=== PATIENT | male | born 1950 | race American Indian/Alaskan Native ===

== ENCOUNTER 2019-05-06 09:28 | Day surgery (SDC) | payer MEDICARE ==
[2019-05-06] MEDS ORDERED: ceFAZolin/STERILE WATER 2 GM/20 ML SYRINGE IV NR (11:00)
[2019-05-06] MEDS ORDERED: LACTATED RINGERS 1,000 ML ONE (11:01)
[2019-05-06] MEDS ORDERED: PROPOFOL 200 MG/20 ML VIAL IV ONE (11:23)
[2019-05-06] MEDS ORDERED: LIDOCAINE MPF (2%) 20 MG/1 ML VIAL 5 ML ONE (11:24)
--- NOTE | 2019-05-06 11:55 | Anesthesia Day of Surgery ---
Anesthesia Day of Surgery - Day of Surgery Patient Examined: Yes Patient H&P Reviewed: Yes Patient is NPO: Yes
--- NOTE | 2019-05-06 11:55 | Anesthesia Consultation ---
Anesthesia Consult and Med Hx Date of service: 05/06/19 - Airway ROM Head & Neck: Adequate Mental/Hyoid Distance: Adequate Mallampati Class: Class II Intubation Access Assessment: Probably Good - Pulmonary Exam CTA: Yes - Cardiac Exam Cardiac Exam: RRR - Pre-Operative Health Status ASA Pre-Surgery Classification: ASA3 - Pulmonary Hx Smoking: Yes (1/2 PPD X 40 YRS) Hx Sleep Apnea: No (MYLA PRE SCREEN HIGH RISK.) - Cardiovascular System Hx Hypertension: Yes (X 3 YRS) Hx Peripheral Vascular Disease: Yes (LEGS) - Central Nervous System CVA: Yes (4 YRS AGO , MILD LEFT SIDED WEAKNESS,NO BLOOD THINNERS) - Other Systems Hx Cancer: No
[2019-05-06] MEDS ORDERED: LACTATED RINGERS 1,000 ML IV SCH (12:00)
[2019-05-06] MEDS ORDERED: fentaNYL 100 MCG/2 ML INJ ONE (12:03)
[2019-05-06] MEDS ORDERED: ONDANSETRON 4 MG/2 ML INJ ONE (12:04)
[2019-05-06] MEDS ORDERED: dexAMETHasone 20 MG/5 ML VIAL ONE (12:04)
--- NOTE | 2019-05-06 12:30 | Post Operative Note ---
Date of procedure: 05/06/19 Pre-op diagnosis: molina Post-op diagnosis: same Findings: bilobar Procedure: rezum Anesthesia: GETA Surgeon: BEBO CAMERON Estimated blood loss: none Pathology: none Condition: stable Disposition: PACU
--- NOTE | 2019-05-06 12:31 | Discharge Summary ---
Short Stay Discharge Plan Activity: other (no straining ) Weight Bearing Status: Full Weight Bearing Diet: low fat, low cholesterol, low salt Special Instructions: other (inc fluids ) Durable Medical Equipment Needed Upon Discharge: other (home with james ) Follow up with: JUAN BOYER MD [Primary Care Provider] - 7 Days BEBO CAMERON MD [Staff Physician] - 7 Days
[2019-05-06] MEDS ORDERED: HYDROmorphone 1 MG/1 ML INJ IV PRN (12:57)
[2019-05-06] MEDS ORDERED: ONDANSETRON 4 MG/2 ML INJ IV PRN (12:57)
--- NOTE | 2019-05-06 13:05 | Operative Report ---
PREOPERATIVE DIAGNOSIS: Bladder outlet obstruction. POSTOPERATIVE DIAGNOSES: Bladder outlet obstruction. PROCEDURE: Cystoscopy, Rezum therapy. SURGEON: Dr. Estrada. ANESTHESIA: General. FINDINGS: This is a gentleman with a high IPSS score, bladder outlet obstruction. He now presents for Rezum therapy. He has a short prostate now presents for treatment. DESCRIPTION OF PROCEDURE: The patient was brought to the operating room and placed on the operating table. Following induction of anesthesia, placed in lithotomy position, prepped and draped in usual sterile fashion. Cystourethroscopy showed a short urethra with a minimal median bar. At this point, the scope was removed. The Rezum therapy was primed and then replaced in the bladder without difficulty. We clearly saw the verumontanum and the bladder neck and 1 cm from the bladder neck, treatment was created once on the left and then on the right. The patient tolerated the procedure well. There was a small median bar coming from his right side. We did want treatment in the middle, a total of 3. Patient tolerated the procedure well. No significant complications. Fitzpatrick was easily inserted, brought to recovery in stable condition. JOB# [id number] PANCHO/WARREN
[2019-05-06 13:36] VITALS: BP 130/85
--- NOTE | 2019-05-06 14:08 | Post Anesthesia Evaluation ---
- Post Anesthesia Evaluation Patient Participated: Yes Airway Patent: Yes Stable Respiratory Function: Yes Nausea/Vomiting: No Temp > 96.8F: Yes Pain Manageable: Yes Adequeate Hydration: Yes Anesthesia Complications: No Block Receding Appropriately: Not Applicable Patient on Ventilator: No
== END 2019-05-06 14:25 | disposition home or self-care (01) ==
LOC: OR 09:28
PROVIDERS: ATTEND Urology
DX: N32.0 Bladder-neck obstruction (principal); N40.1 Benign prostatic hyperplasia with lower urinary tract symptoms; I73.9 Peripheral vascular disease, unspecified; E78.00 Pure hypercholesterolemia, unspecified; I10 Essential (primary) hypertension; F17.210 Nicotine dependence, cigarettes, uncomplicated; Z87.440 Personal history of urinary (tract) infections; Z79.899 Other long term (current) drug therapy; Z79.82 Long term (current) use of aspirin; Z98.890 Other specified postprocedural states; Z86.73 Personal history of transient ischemic attack (TIA), and cerebral infarction without residual deficits
CPT/HCPCS: 53854; J0690; J1100; J1170; J2405; J2704; J3010; J7120

== ENCOUNTER 2019-06-16 13:37 | Emergency (ER) | payer MEDICARE ==
--- NOTE | 2019-06-16 14:21 | Event Note ---
ED Screening Note Date of service: 06/16/19 Time: 14:17 ED Screening Note: This is a 68 y.o. M. that presents with retention since awaking this morning. Had a procedure done [address] Estrada at [facility] for BPH. PMH of HTN, MYLA, BPH, HLD, and PVD. Started on new medication 2 days ago. Reports last void was last night with low output. Reports pelvic pressure, frequency, and retention. This initial assessment/diagnostic orders/clinical plan/treatment(s) is/are subject to change based on patients health status, clinical progression and re- assessment by fellow clinical providers in the ED. Further treatment and workup at subsequent clinical providers discretion. Patient/guardian urged not to elope from the ED as their condition may be serious if not clinically assessed and managed. Initial orders include: UA
--- NOTE | 2019-06-16 14:57 | Emergency Department Report ---
HPI - General Chief Complaint: Urogenital-Male Time Seen by Provider: 06/16/19 14:17 - HPI HPI: Room 34 The patient is a 68-year-old male present with chief complaint of urinary retention. Patient states he has slight dysuria yesterday. The patient states throughout the night he had the urge to urinate but whenever he went only a small amount will come out. Patient states this morning he awakened at 07: 3 0 with urge to urinate but cannot pass his urine. Patient has a history of enlarged prostate ED Past Medical Hx - Past Medical History Previous Medical History?: Yes Hx Hypertension: Yes (X 3 YRS) - Surgical History Past Surgical History?: No - Family History Family history: no significant - Social History Smoking Status: Current Every Day Smoker (1/2 pack/day) Substance Use Type: Alcohol (Extremely rarely) - Medications Home Medications: Home Medications Medication Instructions Recorded Confirmed Last Taken Type Aspirin [Adult Aspirin] 81 mg PO DAILY 04/25/19 05/06/19 04/29/19 09:00 History Atorvastatin [Lipitor Tab] 80 mg PO QHS 04/25/19 05/06/19 05/05/19 20:00 History Dextromethorphan HBr/Quinidine 1 each PO BID 04/25/19 05/06/19 05/06/19 08:00 History [Nuedexta 20-10 mg Capsule] Oxybutynin [Ditropan] 5 mg PO QHS 04/25/19 05/06/19 05/05/19 20:00 History carvediloL [Coreg] 3.125 mg PO BID 04/25/19 05/06/19 05/06/19 08:00 History lisinopriL [Zestril] 20 mg PO QDAY 04/25/19 05/06/19 05/06/19 08:00 History Ciprofloxacin HCl [Ciprofloxacin 250 mg PO BID #10 tablet 06/16/19 Unknown Rx TAB] ED Review of Systems ROS: Stated complaint: CANT URINATE Other details as noted in HPI Constitutional: no symptoms reported Eyes: denies: eye pain ENT: denies: throat pain Respiratory: no symptoms reported Cardiovascular: denies: chest pain Endocrine: no symptoms reported Gastrointestinal: abdominal pain Genitourinary: other (Urinary retention) Physical Exam - Physical Exam Vital Signs: Vital Signs 06/16/19 14:20 Temperature 98.2 F Pulse Rate 75 Respiratory 18 Rate Blood Pressure 152/96 O2 Sat by Pulse 100 Oximetry Physical Exam: GENERAL: The patient is well-developed well-nourished male sitting on stretcher not appearing to be in acute distress. [] HEENT: Normocephalic. Atraumatic. Extraocular motions are intact. Patient has moist mucous membranes. NECK: Supple. Trachea midline CHEST/LUNGS: Clear to auscultation. There is no respiratory distress noted. HEART/CARDIOVASCULAR: Regular. There is no tachycardia. There is no gallop rub or murmur. ABDOMEN: Abdomen is soft, nontender. Patient has normal bowel sounds. There is no abdominal distention. SKIN: There is no rash. There is no edema. There is no diaphoresis. NEURO: The patient is awake, alert, and oriented. The patient is cooperative. The patient has normal speech MUSCULOSKELETAL: There is no evidence of acute injury. ED Course Vital Signs 06/16/19 14:20 Temperature 98.2 F Pulse Rate 75 Respiratory 18 Rate Blood Pressure 152/96 O2 Sat by Pulse 100 Oximetry - Reevaluation(s) Reevaluation #1: 06/16/19 16:32 Patient improved sitting on stretcher eating a snack not appearing to be in acute distress ED Medical Decision Making - Lab Data Laboratory Tests 06/16/19 15:55 Urine Color Yellow Urine Turbidity Slightly-cloudy Urine pH 6.0 Ur Specific [place] 1.018 Urine Protein 30 mg/dl Urine Glucose (UA) Neg Urine Ketones Neg Urine Blood Lg Urine Nitrite Neg Urine Bilirubin Neg Urine Urobilinogen < 2.0 Ur Leukocyte Esterase Sm Urine WBC (Auto) 87.0 H Urine RBC (Auto) > 182.0 Urine Mucus Few Urine Yeast (Budding) 1+ - Differential Diagnosis Urinary retention Critical care attestation.: If time is entered above; I have spent that time in minutes in the direct care of this critically ill patient, excluding procedure time. ED Disposition Clinical Impression: Urinary retention, UTI (urinary tract infection) Disposition: - TO HOME OR SELFCARE Is pt being admited?: No Does the pt Need Aspirin: No Condition: Stable Instructions: Urinary Retention in Men (ED), Urinary Tract Infection in Men (ED), Fitzpatrick Catheter Placement and Care (ED) Additional Instructions: Return to the emergency department should you develop worsening symptoms, inability to tolerate food or liquids, high fever or any other concerns Prescriptions: Ciprofloxacin HCl [Ciprofloxacin TAB] 250 mg PO BID #10 tablet Referrals: BEBO CAMERON MD [Staff Physician] - 2-3 Days Time of Disposition: 16:32
[2019-06-16 16:13] LABS: Bilirubin,Urine NEG (Negative); Blood,Urine LG (Negative); Color,Urine Yellow (Yellow); Mucus,Urine FEW /HPF; Urobilinogen,Urine < 2.0 mg/dL (<2.0)
[2019-06-16 16:14] LABS: RBC,Urine > 182.0 /HPF (0.0-6.0)
[2019-06-16 19:13] VITALS: BP 147/89
== END 2019-06-16 16:59 | disposition home or self-care (01) ==
LOC: ED 13:37
DX: N39.0 Urinary tract infection, site not specified (principal); R33.9 Retention of urine, unspecified; I10 Essential (primary) hypertension; F17.200 Nicotine dependence, unspecified, uncomplicated; Z79.899 Other long term (current) drug therapy
CPT/HCPCS: 51702; 81001; 87086; 99283

== ENCOUNTER 2019-12-05 05:55 | Day surgery (SDC) | payer MEDICARE ==
[2019-12-03 09:43] LABS: Hematocrit 40.7 % (35.5-45.6); Hemoglobin 13.6 gm/dl (11.8-15.2); Mean Corpuscular HGB Conc 34 % (32-34); Mean Corpuscular Volume 98 fl (84-94); Platelet Count 149 K/mm3 (140-440); Red Blood Count 4.14 M/mm3 (3.65-5.03); Red Cell Distribution Width 13.9 % (13.2-15.2)
[2019-12-05] MEDS ORDERED: LACTATED RINGERS 1,000 ML IV SCH (06:00)
[2019-12-05] MEDS ORDERED: MAGNESIUM OXIDE 400 MG TAB PO SCH (06:00)
[2019-12-05] MEDS ORDERED: CELECOXIB 200 MG CAP PO NR (06:00)
[2019-12-05] MEDS ORDERED: GABAPENTIN 300 MG CAP PO NR (06:00)
[2019-12-05] MEDS ORDERED: ceFAZolin/Water 2 GM/20 ML 2 GM/20 ML SYRINGE IV SCH (06:00)
[2019-12-05] MEDS ORDERED: MIDAZOLAM 2 MG/2 ML INJ IV NR (06:00)
[2019-12-05] MEDS ORDERED: BACTERIOSTATIC SODIUM CHLORIDE 0.9% 30 ML VIAL INFILTRATI ONE (06:15)
[2019-12-05 07:17] LABS: BUN/Creatinine Ratio 15; Blood Urea Nitrogen 16 mg/dL (9-20); Hemolysis Index 33
[2019-12-05] MEDS ORDERED: ALBUTEROL 2.5 MG/3 ML NEBU IH ONE (07:24)
[2019-12-05] MEDS ORDERED: ALBUTEROL 2.5 MG/3 ML NEBU IH NR (07:30)
[2019-12-05] MEDS ORDERED: HYDROmorphone 1 MG/1 ML INJ IV PRN (07:33)
--- NOTE | 2019-12-05 07:34 | Anesthesia Consultation ---
Anesthesia Consult and Med Hx - Airway Anesthetic Teeth Evaluation: Poor (2 remaining lower teeth), Edentulous (upper) ROM Head & Neck: Adequate Mental/Hyoid Distance: Adequate Mallampati Class: Class III Intubation Access Assessment: Possibly Difficult - Pulmonary Exam CTA: No (mildly coarse breath sounds that clear with cough) - Cardiac Exam Cardiac Exam: RRR - Pre-Operative Health Status ASA Pre-Surgery Classification: ASA3 Proposed Anesthetic Plan: General - Pulmonary Hx Smoking: Yes (1/2 PPD X 40 YRS) SOB: No Hx Sleep Apnea: No (MYLA PRE SCREEN HIGH RISK.) - Cardiovascular System Hx Hypertension: Yes (took coreg and lisinopril this morning) Hx Heart Attack/AMI: No Hx Percutaneous Transluminal Coronary Angioplasty (PTCA): No Hx Cardia Arrhythmia: No Hx Peripheral Vascular Disease: Yes - Central Nervous System CVA: Yes (4 yrs ago w/ residual L [place]. Off ASA x1wk.) - Gastrointestinal Hx Gastroesophageal Reflux Disease: No - Endocrine Hx Renal Disease: No Hx Liver Disease: No Hx Insulin Dependent Diabetes: No Hx Non-Insulin Dependent Diabetes: No Hx Thyroid Disease: No - Other Systems Hx Obesity: No
--- NOTE | 2019-12-05 07:35 | Anesthesia Day of Surgery ---
Anesthesia Day of Surgery - Day of Surgery Patient Examined: Yes Patient H&P Reviewed: Yes Patient is NPO: Yes
[2019-12-05] MEDS ORDERED: LIDOCAINE (1%) 10 MG/1 ML VIAL 20 ML MDV ONE (07:42)
[2019-12-05] MEDS ORDERED: BUPIVACAINE/PF (0.5%) 5 MG/1 ML 30 ML VIAL INFILTRATI ONE ×2 (07:42→09:10)
[2019-12-05] MEDS ORDERED: LIDOCAINE MPF (2%) 20 MG/1 ML VIAL 5 ML ONE (07:59)
[2019-12-05] MEDS ORDERED: PHENYLEPHRINE/NS 1,000 MCG/10 ML SYRINGE (OR USE) IV ONE (07:59)
[2019-12-05] MEDS ORDERED: GLYCOPYRROLATE 0.4 MG/2 ML INJ ONE (07:59)
[2019-12-05] MEDS ORDERED: ONDANSETRON 4 MG/2 ML INJ ONE (07:59)
[2019-12-05] MEDS ORDERED: ROCURONIUM 50 MG/5 ML INJ IV ONE (07:59)
[2019-12-05] MEDS ORDERED: SUCCINYLCHOLINE CHLORIDE 200 MG/10 ML INJ MDV ONE (07:59)
[2019-12-05] MEDS ORDERED: dexAMETHasone 20 MG/5 ML VIAL ONE (07:59)
[2019-12-05] MEDS ORDERED: NEOSTIGMINE 10MG/10 ML INJ MDV ONE (07:59)
[2019-12-05] MEDS ORDERED: propofoL 200 MG/20 ML VIAL IV ONE (08:00)
[2019-12-05] MEDS ORDERED: fentaNYL 100 MCG/2 ML INJ ONE (08:00)
[2019-12-05] MEDS ORDERED: LIDOCAINE (1%) 10 MG/1 ML VIAL 20 ML MDV INFILTRATI ONE (09:11)
[2019-12-05] MEDS ORDERED: WATER FOR IRRIG STERILE 1,500 ML BOTTLE IR ONE (09:12)
[2019-12-05] MEDS ORDERED: KETOROLAC 30 MG/1 ML INJ ONE (09:49)
--- NOTE | 2019-12-05 10:09 | Short Stay Summary ---
Short Stay Documentation Date of service: 12/05/19 - History Principal diagnosis: right inguinal hernia H&P: obtained from office - Allergies and Medications Current Medications: Allergies No Known Allergies Allergy (Verified 04/25/19 10:59) Home Medications Medication Instructions Recorded Confirmed Last Taken Type Aspirin [Adult Aspirin] 81 mg PO DAILY 04/25/19 12/05/19 12/01/19 History Atorvastatin [Lipitor Tab] 80 mg PO QHS 04/25/19 11/28/19 12/04/19 History Dextromethorphan HBr/Quinidine 1 each PO BID 04/25/19 11/28/19 12/05/19 04:00 History [Nuedexta 20-10 mg Capsule] Oxybutynin [Ditropan] 5 mg PO QHS 04/25/19 11/28/19 12/04/19 History carvediloL [Coreg] 3.125 mg PO BID 04/25/19 11/28/19 12/05/19 04:00 History lisinopriL [Zestril] 20 mg PO QDAY 04/25/19 11/28/19 12/05/19 04:00 History Ciprofloxacin HCl [Ciprofloxacin 250 mg PO BID #10 tablet 06/16/19 11/28/19 12/04/19 Rx TAB] Tamsulosin [Flomax] 0.4 mg PO QDAY 11/28/19 11/28/19 12/05/19 04:00 History Active Medications Albuterol (Proventil) 2.5 mg IH PREOP NR Stop: 12/05/19 23:00 Last Admin: 12/05/19 07:25 Dose: 2.5 mg Documented by: Celecoxib (Celebrex) 200 mg PO PREOP NR Stop: 12/05/19 23:00 Last Admin: 12/05/19 06:50 Dose: 200 mg Documented by: Gabapentin (Gabapentin) 600 mg PO PREOP NR Stop: 12/05/19 23:00 Last Admin: 12/05/19 06:50 Dose: 600 mg Documented by: Hydromorphone HCl (Dilaudid) 0.5 mg IV Q10MIN PRN PRN Reason: Pain , Severe (7-10) Stop: 12/05/19 23:00 Lactated Ringer's (Lactated Ringers) 1,000 mls @ 100 mls/hr IV DIRECT ARIAN Stop: 12/05/19 23:59 Last Admin: 12/05/19 06:35 Dose: 100 mls/hr Documented by: Cefazolin Sodium (Ancef/Sterile Water 2 Gm/20 Ml) 2 gm in 20 mls @ 40 mls/hr IV PREOP ARIAN; Protocol Stop: 12/05/19 23:01 Magnesium Oxide (Mag-Ox) 400 mg PO PREOP ARIAN Stop: 12/05/19 23:00 Last Admin: 12/05/19 06:50 Dose: 400 mg Documented by: Midazolam HCl (Versed) 2 mg IV PREOP NR Stop: 12/05/19 23:00 - Brief post op/procedure progress note Date of procedure: 12/05/19 Pre-op diagnosis: right inguinal hernia Post-op diagnosis: same Procedure: robotic assisted right inguinal hernia repair with mesh Anesthesia: GETA, local Findings: large direct hernia containing fat, tiny indirect hernia Surgeon: LACY ARIZA Access Rep: REINALDO VASQUEZ Estimated blood loss: minimal Pathology: none Condition: stable - Hospital course Hospital course: Pt observed in PACU and discharged to home in stable condition when criteria met - Disposition Condition at discharge: Good Disposition: DC-01 TO HOME OR SELFCARE Short Stay Discharge Plan Activity: other (no heavy lifting) Diet: regular Wound: open to air, per your surgeon's advice Additional Instructions: SEE PRINTED DISCHARGE INSTRUCTIONS Follow up with: JUAN BOYER MD [Primary Care Provider] - 7 Days LACY ARIZA DO [Staff Physician] - 14 Days Prescriptions: HYDROcodone/APAP 5-325 [Alto 5/325] 1 each PO Q6H PRN #20 tablet PRN Reason: Pain
[2019-12-05 11:12] VITALS: BP 148/78
--- NOTE | 2019-12-05 12:49 | Post Anesthesia Evaluation ---
- Post Anesthesia Evaluation Patient Participated: Yes Airway Patent: Yes Stable Respiratory Function: Yes Nausea/Vomiting: No Temp > 96.8F: Yes Pain Manageable: Yes Adequeate Hydration: Yes Anesthesia Complications: No
--- NOTE | 2019-12-05 17:48 | Operative Report ---
Operative Report Operative Report: Date of procedure: 12/05/19 Pre-op diagnosis: right inguinal hernia Post-op diagnosis: same Procedure: robotic assisted right inguinal hernia repair with mesh Anesthesia: GETA, local Findings: large direct hernia containing fat, tiny indirect hernia Surgeon: LACY ARIZA Director Of Occupational Therapy: REINALDO VASQUEZ Estimated blood loss: minimal Pathology: none Condition: stable - Hospital course Hospital course: Pt observed in PACU and discharged to home in stable condition when criteria met HPI and indication: The patient is a 69-year-old male who presented to the surgery clinic with complaints of a right inguinal hernia. The hernia was causing him discomfort. Was recommended that the hernia be repaired. All risk, benefits, alternatives surgery discussed with patient questions answered. On physical exam there was an obvious right inguinal hernia that was reducible. There was no hernia palpable on the left. Consent was obtained for robotic assisted right inguinal hernia repair with mesh, possible open Procedure in detail: The patient was identified in the preoperative area and the right groin marked. The patient already had a Fitzpatrick catheter per his urologist. He was taken back to the operating room and placed on the operating room table in supine position. After anesthesia was induced bilateral arms were tucked with all bony prominences padded appropriately. The abdominal and right groin hairs were clipped. The abdomen and right groin were prepped and draped in usual sterile fashion a timeout performed. Local anesthetic was infiltrated to all skin incision sites. A davida incision was made at the umbilicus through which a Veress needle was inserted. The Veress needle positioning was confirmed using saline drop test and the abdomen insufflated to 15 mmHg. A supraumbilical incision was made through which a 5 mm Optiview trocar was inserted. The abdomen was inspected and there was no underlying injury to any of the abdominal structures. The Veress needle was identified and removed. A right upper quadrant and left upper quadrant 8 mm robotic trochars were then placed under direct visualization. The 5 mm supraumbilical trocar was removed and replaced with a 12 mm balloon trocar under direct visualization. A Ray-Catarino was placed into the abdomen and the patient placed in Trendelenburg position. The robot was then docked with a fenestrated bipolar grasper in arm #2 and a monopolar scissor in arm #1. The surgeon was moved to the console. The right inguinal hernia was identified. Of note there was also a very small left inguinal hernia. The peritoneum was scored from the midline to the ASIS and then a preperitoneal flap created in an avascular plane. Using a combination of blunt dissection and electrocautery the flap was carried down medially until the pubic tubercle was identified. This was cleared off of any tissues using blunt dissection. Further dissection was carried medially in order to create more space for the mesh. Hemostasis was achieved along the way. I then proceeded to creating the lateral flap. I then proceeded to reduce the hernia sac. This was done carefully using traction and blunt dissection. The cremasteric muscles were divided using electrocautery. Once the entire hernia sac was reduced a small lipoma was also reduced. Patient had a large direct hernia and a very tiny indirect hernia. The peritoneal flap was checked for hemostasis which was carefully ensured. The cord structures were visualized and were uninjured. A large 3D max right-sided mesh was chosen to repair the defect. This was placed into the abdomen along with suture material by the delinquent tax collector assistant surgeon. The mesh was positioned appropriately in the pocket and was laid over the defects. There was good coverage and the mesh laid flat against the abdominal wall and cord structures. The mesh was tacked in place at the pubic tubercle and 2 locations in the lateral abdominal wall using 2-0 Vicryl interrupted sutures. The intra-abdominal pressure was then dropped to 8 mmHg. The peritoneal flap was reapproximated using a running 3 oh VueLock suture. There were no defects seen in the peritoneum. All of the mesh was covered. The robot was then undocked and the surgeon scrubbed back in. The remainder of the case was performed laparoscopically. All needles and suture material were removed from the abdomen under direct visualization along with a Ray-Catarino. The 12 mm port was removed and the fascia closed with a interrupted 0 Vicryl suture using the William Figueroa device. The remainder of the ports were removed and the abdomen desufflated. All incisions were once again infiltrated with local anesthetic and skin incisions closed with 4-0 Monocryl subcuticular stitches and skin glue. At the end of the case, all sponge, instrument, sharp counts were correct x2. The patient was awoke from anesthesia extubated and taken to PACU in stable condition.
== END 2019-12-05 11:50 | disposition home or self-care (01) ==
LOC: OR 05:55
PROVIDERS: ATTEND Surgery
DX: K40.90 Unilateral inguinal hernia, without obstruction or gangrene, not specified as recurrent (principal); Z20.828 Contact with and (suspected) exposure to other viral communicable diseases; I73.9 Peripheral vascular disease, unspecified; F17.210 Nicotine dependence, cigarettes, uncomplicated; E78.00 Pure hypercholesterolemia, unspecified; I10 Essential (primary) hypertension; Z87.440 Personal history of urinary (tract) infections; Z79.899 Other long term (current) drug therapy; Z79.82 Long term (current) use of aspirin; Z86.2 Personal history of diseases of the blood and blood-forming organs and certain disorders involving the immune mechanism; Z86.73 Personal history of transient ischemic attack (TIA), and cerebral infarction without residual deficits
CPT/HCPCS: 36415; 49650; 80048; 85027; C1781; J0330; J0690; J1100; J1885; J2370; J2405; J2704; J2710; J3010; J7120; U0003; J2250